=== PATIENT | male | born 2000 | race Caucasian/White ===

== ENCOUNTER 2022-10-02 10:55 | Emergency (ER) | payer BC, SELFPAY ==
[2022-10-02 11:03] VITALS: BP 130/74; PULSE 105; RESP 16; TEMP 37.7; O2SAT 99
[2022-10-02 11:18] VITALS: BP 130/74; PULSE 105; RESP 16; TEMP 37.7; O2SAT 99
--- NOTE | 2022-10-02 11:32 | ED.GENADULT ---
HPI - General Adult General Chief complaint: Upper Respiratory Infection Stated complaint: Sore Throat Source: patient Mode of arrival: ambulatory Limitations: no limitations History of Present Illness HPI narrative: Patient presents for evaluation of sore throat since last night. No fever, chills, nausea, vomiting, cough, shortness of breath. No recent sick contacts to his knowledge. He does not smoke. He is not taking any medications to assist this symptoms. He has some associated fatigue but denies other complaints. Related Data Allergies Allergy/AdvReac Type Severity Reaction Status Date / Time No Known Allergies Allergy Verified 10/02/22 11:18 Review of Systems Review of Systems: CONSTITUTIONAL: Denies fever, chills, or sweats. EYES: Denies visual changes, redness, or discharge. ENT: Reports fore throat. Denies rhinorrhea, congestion, or otalgia. CARDIOVASCULAR: Denies chest pain, palpitations, or edema. RESPIRATORY: Denies cough or dyspnea. GASTROINTESTINAL: Denies abdominal pain, nausea, vomiting, or diarrhea. GENITOURINARY: Denies dysuria or hematuria. SKIN: Denies rash or itching. MUSCULOSKELETAL: Denies back pain, joint pain, or myalgia. NEUROLOGIC: Denies headache, numbness, dizziness, or weakness. PSYCHIATRIC: Denies anxiety or depression. [facility] Past Medical History Medical History (Updated 10/02/22 @ 11:33 by Armaan Hutson, [facility], ) No pertinent past medical history Surgical History Surgical History No pertinent past surgical history Family History Family History Mother Family history non-contributory Social History Social History Smoking status: Never smoker Substance use: never Gender identity (if verbalized by the patient): Male Sexual Orientation (if Verbalized by the Patient): Straight or Heterosexual Spiritual care concerns: No Exam Narrative: GENERAL: Well-appearing, well-nourished, and in no acute distress. HEAD: Normocephalic, atraumatic. EYES: PERRLA and EOMI. ENT: Nares clear, no rhinorrhea or epistaxis. Mucous membranes moist. Bilateral tonsillar enlargement with erythema and white exudate. Uvula is midline. Bilateral TMs pearly street nonbulging NECK: Supple. No adenopathy or masses. No carotid bruits or JVD CHEST: Clear to auscultation. No respiratory distress. No wheezes rales or rhonchi HEART: Regular rate and rhythm. No murmur heard. Normal peripheral pulses. ABDOMEN: Soft, nontender, nondistended, normal active bowel sounds. EXTREMITIES: Normal range of motion. No edema. SKIN: Warm, dry, no rash. NEURO: No focal deficits. Alert and oriented x3. PSYCH: Normal mood and affect. Course Course Emergency Course: This is a 21-year-old male who presented for evaluation of sore throat. Rapid strep was negative. Discussed waiting on throat culture vs treating today. Pt would like to be treated. Provided with script for PCN. Follow up outpatient for further evaluation and treatment and go to ER for worsening symptoms. Pt in agreement with plan of care. Level of Care: Express Care Visit Vital Signs Vital signs: Vital Signs Temperature 37.7 C H 10/02/22 11:03 Pulse Rate 105 H 10/02/22 11:03 Respiratory Rate 16 10/02/22 11:03 Blood Pressure 130/74 10/02/22 11:03 Pulse Oximetry 99 10/02/22 11:03 Oxygen Delivery Room Air 10/02/22 11:03 Temperature 37.7 C H 10/02/22 11:18 Pulse Rate 105 H 10/02/22 11:18 Respiratory Rate 16 10/02/22 11:18 Blood Pressure 130/74 10/02/22 11:18 Pulse Oximetry 99 10/02/22 11:18 Oxygen Delivery Room Air 10/02/22 11:18 Medical Decision Making Vital Signs Vital Signs: Vital Signs Temperature 37.7 C H 10/02/22 11:03 Pulse Rate 105 H 10/02/22 11:03 Respiratory Rate 16 10/02/22 11:03 Blood Pressure
== END 2022-10-02 11:35 | disposition home or self-care (01) ==
PROVIDERS: Emergency Provider Nurse Practitioner; PCP Emergency Medicine
DX: J02.9 Acute pharyngitis, unspecified (principal)
CPT/HCPCS: 87081; 87880; 99213; G0463